=== PATIENT | female | born 1965 | race Caucasian/White ===

== ENCOUNTER 2020-10-18 10:45 | Outpatient (CLI) | payer OTHER | END 2020-10-18 23:59 | disposition home or self-care (01) | LOC: LAB.R 10:45 | PROVIDERS: ATTEND Physician Assistant | DX: H60.92 Unspecified otitis externa, left ear (principal) | CPT/HCPCS: 87070; 87077; 87181; 87205 ==

== ENCOUNTER 2021-03-14 08:23 | Outpatient (CLI) | payer OTHER ==
--- NOTE | 2021-03-14 19:03 | DEXA Report ---
PROCEDURE: Dexa Spine and/or Hip INDICATIONS: POSTMENOPAUSAL TECHNIQUE: Dual energy x-ray absorptiometry (DXA) was performed on a [employer] System. Regions measur ed are the AP Spine, femoral neck, and if needed forearm. COMPARISON: None. FINDINGS: Lumbar Spine: Bone Mineral Density 1.017 g/cm/cm,T score -1.4, Left Hip: Bone Mineral Density 0.887 g/cm/cm,T score -1.0, Left Femoral Neck: Bone Mineral Density 0.759 g/cm/cm, T score -2.0, (T score greater or equal to -1.0: NORMAL) (T score from -1.1 to -2.4: OSTEOPENIA) (T score less than or equal to -2.5 to: OSTEOPOROSIS) Impression: Osteopenia. Patients with diagnosis of osteoporosis or osteopenia should have regular bone mineral density assess ment. For those eligible for Medicare, routine testing is allowed once every 2 years. Testing frequ ency can be increased for patients who have rapidly progressing disease or for those who are receivin g medical therapy to restore bone mass. Reviewed by: Gordy Macias MD on 03/14/2021 7:01 PM PDT Approved by: Gordy Macias MD on 03/14/2021 7:01 PM PDT Station ID: [id number]
== END 2021-03-14 08:24 | disposition home or self-care (01) ==
LOC: DI 08:23
PROVIDERS: ATTEND Nurse Practitioner Family
DX: M85.89 Other specified disorders of bone density and structure, multiple sites (principal); Z78.0 Asymptomatic menopausal state

== ENCOUNTER 2022-03-27 07:58 | Outpatient (CLI) | payer OTHER ==
--- NOTE | 2022-03-28 13:41 | Mammography Report ---
BILATERAL DIGITAL SCREENING MAMMOGRAM 3D/2D: 03/27/2022 CLINICAL: Routine screening. Comparison is made to exams dated: 07/10/2010 mammogram and 12/15/2007 mammogram - [facility]. There are scattered fibroglandular elements in both breasts. No significant masses, calcifications, or other findings are seen in either breast. There has been no significant interval change. IMPRESSION: NEGATIVE There is no mammographic evidence of malignancy. A 1 year screening mammogram is recommended. This exam was interpreted at Station ID: [id number]. NOTE: For mammograms, a report in lay terms will be sent to the patient. Approximately 15% of breast malignancies will not be visualized mammographically. In the management of a palpable breast mass, a negative mammogram must not discourage biopsy of a clinically suspicious lesion. Electronically Signed By: Mima gee/[email or web address]:03/27/2022 17:56:53 ACR BI-RADS Category 1: Negative 3341F PARENCHYMAL PATTERN: (A) - The breast(s) demonstrate(s) scattered fibroglandular densities. BI-RADS CATEGORY: (1) - 1 RECOMMENDATION: (ANNUAL) - Recommend routine annual screening mammography. [id number] 1 year screening LATERALITY: (B)
== END 2022-03-27 07:59 | disposition home or self-care (01) ==
LOC: DI.S 07:58
PROVIDERS: ATTEND Nurse Practitioner Family
DX: Z12.31 Encounter for screening mammogram for malignant neoplasm of breast (principal)

== ENCOUNTER 2022-05-17 06:49 | Day surgery (SDC) | payer OTHER ==
[2022-05-17] MEDS ORDERED: LACTATED RINGERS 1,000 ML IV ONE (07:13)
--- NOTE | 2022-05-17 07:45 | ANESTHESIA ---
Pre-Anesthesia VS, & Labs - Diagnosis Colonoscopy Screening - Procedure Colonoscopy Vital Signs: Temp Pulse Resp BP Pulse Ox 36.4 C L 84 16 158/95 H 98 05/17/22 07:14 05/17/22 07:14 05/17/22 07:14 05/17/22 07:14 05/17/22 07:14 Height: 5 ft 5 in Weight (kg): 74.6 kg Body Mass Index: 27.3 BMI Classification: Overweight - NPO >8 hours - Is Patient ?: No Home Medications and Allergies Home Medications: Ambulatory Orders Acetic Acid 1 ml EACHEAR HS 05/16/22 Acetic Acid 1 ml EACHEAR 05/16/22 Propanolol PRN - not taken > 1 month Allergies/Adverse Reactions: Allergies Allergy/AdvReac Type Severity Reaction Status Date / Time No Known Drug Allergies Allergy Verified 05/16/22 12:41 Anes History & Medical History - Anesthetic History Anesthesia Complications: reports: No previous complications, Post-Operative Nausea/Vomiting Family history of Anesthesia Complications: Denies Family history of Malignant Hyperthermia: Denies - Medical History Cardiovascular: reports: Hypertension Pulmonary: reports: None Gastrointestinal: reports: Chronic constipation Urinary: reports: None Neuro: reports: None Musculoskeletal: reports: None, Osteopenia Endocrine/Autoimmune: reports: None Blood Disorders: reports: None Skin: reports: None Smoking Status: Never smoker Psychosocial: reports: Alcohol (Nightly beer or mixed drink) History of Cancer?: No - Surgical History General: reports: Appendectomy Gynecologic: reports: section Orthopedic: reports: Other Exam General: Alert, Oriented x3, Cooperative, No acute distress Dental: WNL Mouth Openin Fingerbreadth Mallampati classification: II Thyromental Distance: less than 4 cm Respiratory: Lungs clear, Normal breath sounds, No respiratory distress, No accessory muscle use Cardiovascular: Regular rate, Normal S1, Normal S2 Mental/Cognitive Status: Alert/Oriented X3, Normal for patient Cognitive Status: Within normal limits Plan Anesthesia Type: General, Total IV Consent for Procedure(s) Verified and Reviewed: Yes Code Status: Attempt Resuscitation ASA classification: 1-Healthy patient Is this case an emergency?: No
[2022-05-17] MEDS ORDERED: PROPOFOL 500 MG/50 ML 500 MG/50 ML VIAL ONE (08:01)
[2022-05-17] MEDS ORDERED: LIDOCAINE-MPF 2% 5 ML VIAL ONE (08:02)
[2022-05-17] MEDS ORDERED: MIDAZOLAM 2 MG/2 ML VIAL ONE (08:26)
[2022-05-17] MEDS ORDERED: ONDANSETRON 4 MG/2 ML VIAL ONE (08:29)
[2022-05-17 09:29] VITALS: BP 145/85
--- NOTE | 2022-05-17 10:43 | ANESTHESIA POST OP EVALUATION ---
Anesthesia Post Eval - Post Anesthesia Eval Vitals: Last Vital Signs Temp 36.9 C 05/17/22 09:02 Pulse 76 05/17/22 09:27 Resp 14 05/17/22 09:27 BP 145/85 H 05/17/22 09:27 Pulse Ox 100 05/17/22 09:27 CV Function Including HR & BP: Stable Pain Control: Satisfactory Nausea & Vomiting: Negative Mental Status: Baseline Respiratory Status: Airway Patent Hydration Status: Satisfactory Anesthesia Complications: None
== END 2022-05-17 06:50 | disposition home or self-care (01) ==
LOC: SDS 06:49
PROVIDERS: ATTEND Surgery
PROC: 0DBL8ZX Excision of Transverse Colon, Via Natural or Artificial Opening Endoscopic, Diagnostic (ICD-10-PCS; 2022-05-17)
PROC: 0DBM8ZX Excision of Descending Colon, Via Natural or Artificial Opening Endoscopic, Diagnostic (ICD-10-PCS; principal; 2022-05-17 08:30)
DX: Z12.11 Encounter for screening for malignant neoplasm of colon (principal); D12.4 Benign neoplasm of descending colon; D12.3 Benign neoplasm of transverse colon; K63.5 Polyp of colon; K57.30 Diverticulosis of large intestine without perforation or abscess without bleeding; I10 Essential (primary) hypertension
CPT/HCPCS: 45380; J7120